=== PATIENT | female | born 1950 | race Caucasian/White ===

== ENCOUNTER 2019-03-16 17:45 | Inpatient (IN) | payer MEDICARE, MEDICAID ==
[~2019-03-16] VITALS: Ht 167.6 cm; Wt 65.9 kg
[2019-03-16] MEDS ORDERED: OXYC5TAB3 PO (17:59)
[2019-03-16] MEDS ORDERED: OXYC10TA47 PO ×2 (17:59→22:46)
[2019-03-16] MEDS ORDERED: ZOLP5TAB PO (17:59)
[2019-03-16] MEDS ORDERED: DETROL (17:59)
[2019-03-16] MEDS ORDERED: SULF1TAB23 PO (17:59)
--- NOTE | 2019-03-16 18:23 | NUR ---
BIB EMS FROM [facility] FOR LEFT LEG POPLITEAL DVT AND GI BLEED. PT VS STABLE AT THIS TIME. PT DENIES CHEST PAIN, SOB, NO PAIN LEFT LEG, JUST EDEMA. PT ALSO DIAGNOSED W UPPER GI BLEED FROM [facility]. NO NAUSEA OR VOMITING AT THIS TIME. MD AT BEDSIDE. IV ESTABLISHED PER EMS. HX OF MRSA
[2019-03-16 19:14] LABS: INTERNATIONAL NORMALIZED RATIO 1.02 (0.93-1.1); PROTHROMBIN TIME 10.7 Seconds (9.6-11.5)
[2019-03-16 19:15] LABS: ALANINE AMINOTRANSFERASE 17 U/L (12-78); ALBUMIN 3.5 g/dL (3.4-5.0); ANION GAP 4 mmol/L (5-15); CALCIUM 8.5 mg/dL (8.5-10.1); CHLORIDE 110 mmol/L (98-107); CREATININE 0.88 mg/dL (0.55-1.02)
[2019-03-16 19:20] LABS: ALKALINE PHOSPHATASE 58 U/L (45-117); BILIRUBIN,TOTAL 0.4 mg/dL (0.2-1.0); TOTAL PROTEIN 6.2 g/dL (6.4-8.2)
--- NOTE | 2019-03-16 19:30 | NUR ---
PT RESTING WATCHING TV. VS STABLE. GIVEN BLANKET. NO NEEDS AT THIS TIME
[2019-03-16 19:31] LABS: MEAN CORPUSCULAR HEMOGLOBIN 22.1 pg (27.0-34.8); MEAN CORPUSCULAR HGB CONC 30.1 g/dL (32.4-35.8); MEAN CORPUSCULAR VOLUME 73.3 fL (80-100); MEAN PLATELET VOLUME 8.2 fL (7.4-10.4); PLATELET COUNT 230 x10^3/uL (130-400); RED BLOOD COUNT 3.36 x10^6/uL (3.82-5.3); RED CELL DISTRIBUTION WIDTH 22.3 % (9.6-15.2)
[2019-03-16 19:32] LABS: MD YES
[2019-03-16 20:12] LABS: EOS#(MANUAL) 0.05 x10^3/uL (0.0-0.4); EOS% (MANUAL) 1 % (1-7); LYMPHS% (MANUAL) 27 % (22-44); MONOS#(MANUAL) 0.26 x10^3/uL (0.3-2.7); MONOS% (MANUAL) 5 % (2-9); SEG#(MANUAL) 3.48 x10^3/uL (1.8-6.8); SEGS% (MANUAL) 67 % (42-75)
[2019-03-16 20:14] LABS: <PLATELET ESTIMATE> ADEQUATE; <PLT MORPHOLOGY> NORMAL PLT MORPH; HYPOCHROMIA 2+; MICROCYTOSIS 2+
--- NOTE | 2019-03-16 20:24 | NUR ---
ASSISTED PT TO BATHROOM W WHEELCHAIR. PT TRANSFERS SELF TO BED FROM CHAIR W OUT ASSISTANCE. PT GIVEN WATER. AIR DEODORIZER SERVICER APPLIED. NO NEEDS AT THIS TIME
--- NOTE | 2019-03-16 21:02 | NUR ---
REPORT TO [facility]
[2019-03-16] MEDS ORDERED: OXYcodone IR 5MG TABLET PO SCH (22:00)
[2019-03-16] MEDS ORDERED: OxyconTIN ER 10 MG TAB.ER PO SCH (22:00)
[2019-03-16] MEDS: [UNRECOGNIZED DRUG - REMARK] MC SCH (22:30)
[2019-03-16] MEDS ORDERED: ACETAMINOPHEN 325 MG TABLET PO PRN (22:30)
[2019-03-16] MEDS ORDERED: hydrALAzine 20 MG/ML, 1ML IVPush PRN (22:30)
[2019-03-16] MEDS ORDERED: LIDODERM 5% PATCH TD PRN (22:30)
[2019-03-16] MEDS ORDERED: ONDANSETRON 2MG/ML, 2ML IVPush PRN (22:30)
[2019-03-16] MEDS ORDERED: BISACODYL 10 MG SUPP PR PRN (22:30)
[2019-03-16] MEDS ORDERED: ARIP30TA4 PO (22:39)
[2019-03-16 22:41] VITALS: BP 149/63
[2019-03-16] MEDS ORDERED: TOLT2CAP PO (22:41)
[2019-03-16] MEDS ORDERED: BUPR300T49 PO (22:44)
[2019-03-16 22:52] VITALS: BP 93/66
[2019-03-16] MEDS ORDERED: PLEASE ENTER ALLERGIES MC SCH (23:00)
[2019-03-16] MEDS ORDERED: OXYC5TAB2 PO (23:02)
[2019-03-16] MEDS: ZOLPIDEM 5MG TABLET PO SCH (23:11)
[2019-03-16] MEDS: SULFAMETH./TRIMETHOPRIM SS 400MG/80MG TABLET PO SCH (23:11)
[2019-03-16] MEDS ORDERED: OXYcodone IR 5MG TABLET PO PRN (23:30)
[2019-03-16] MEDS: OxyconTIN ER 10 MG TAB.ER PO PRN (23:41)
[2019-03-16] MEDS: OXYcodone IR 5MG TABLET PO PRN (23:41)
[2019-03-17] MEDS: [UNRECOGNIZED DRUG - REMARK] MC SCH (05:06)
[2019-03-17 05:25] VITALS: BP 133/77
[2019-03-17] MEDS: OXYcodone IR 5MG TABLET PO PRN ×3 (05:39→23:20)
[2019-03-17 07:00] VITALS: BP 162/84
[2019-03-17 07:10] LABS: ANION GAP 4 mmol/L (5-15); CALCIUM 8.5 mg/dL (8.5-10.1); CHLORIDE 111 mmol/L (98-107); CREATININE 0.87 mg/dL (0.55-1.02)
[2019-03-17] MEDS: SULFAMETH./TRIMETHOPRIM SS 400MG/80MG TABLET PO SCH ×2 (09:04→21:25)
[2019-03-17] MEDS ORDERED: BACL20TA PO (09:25)
[2019-03-17] MEDS ORDERED: LIDOCAINE 1%, 10ML ONE (11:35)
[2019-03-17] MEDS ORDERED: NALOXONE 1 MG/ML, 2ML ONE (11:36)
[2019-03-17] MEDS ORDERED: FENTANYL PF 100 MCG/2ML ONE (11:36)
[2019-03-17] MEDS ORDERED: VISIPAQUE 270 MG/ML, 50ML BOTTLE ONE (12:00)
[2019-03-17] MEDS: PANTOPRAZOLE 40 MG IV IVPush SCH (13:05)
[2019-03-17 13:07] VITALS: BP 146/80
[2019-03-17] MEDS: OxyconTIN ER 10 MG TAB.ER PO PRN (13:20)
[2019-03-17] MEDS: FERROUS SULFATE 325 MG TABLET PO SCH (16:28)
[2019-03-17 20:33] VITALS: BP 134/74
[2019-03-17] MEDS: OxyconTIN ER 10 MG TAB.ER PO SCH (23:20)
[2019-03-17] MEDS: ZOLPIDEM 5MG TABLET PO SCH (23:20)
[2019-03-18] MEDS: PANTOPRAZOLE 40 MG IV IVPush SCH ×2 (00:47→12:55)
[2019-03-18 01:39] VITALS: BP 129/79
[2019-03-18 05:36] LABS: ANION GAP 7 mmol/L (5-15); CHLORIDE 110 mmol/L (98-107)
[2019-03-18 05:37] LABS: MEAN CORPUSCULAR HEMOGLOBIN 22.2 pg (27.0-34.8); MEAN CORPUSCULAR HGB CONC 30.3 g/dL (32.4-35.8); MEAN CORPUSCULAR VOLUME 73.3 fL (80-100); MEAN PLATELET VOLUME 7.9 fL (7.4-10.4); PLATELET COUNT 211 x10^3/uL (130-400); RED BLOOD COUNT 3.58 x10^6/uL (3.82-5.3); RED CELL DISTRIBUTION WIDTH 22.4 % (9.6-15.2)
[2019-03-18 06:45] LABS: BASOPHILS % (AUTO) 0 % (0-1); EOSINOPHILS # (AUTO) 0.11 x10^3/uL (0-0.4); EOSINOPHILS % (AUTO) 2 % (1-7); LYMPHOCYTES # (AUTO) 1.49 x10^3/uL (1-3.4); LYMPHOCYTES % (AUTO) 25 % (22-44); MD SCAN; MONOCYTES # (AUTO) 0.47 x10^3/uL (0.2-0.8); MONOCYTES % (AUTO) 8 % (2-9); NEUTROPHILS # (AUTO) 3.97 x10^3/uL (1.8-6.8); NEUTROPHILS % (AUTO) 66 % (42-75)
[2019-03-18 08:00] VITALS: BP 127/90
[2019-03-18] MEDS: POLYETHYLENE GLYCOL 17 GM PACKET NG SCH (08:53)
[2019-03-18] MEDS: OxyconTIN ER 10 MG TAB.ER PO SCH ×2 (08:53→21:23)
[2019-03-18] MEDS: TOLTERODINE LA 2MG CAP.ER.24H PO SCH (08:53)
[2019-03-18] MEDS: SULFAMETH./TRIMETHOPRIM SS 400MG/80MG TABLET PO SCH ×2 (08:54→21:23)
[2019-03-18] MEDS: ARIPIPRAZOLE 15 MG TABLET PO SCH (08:54)
[2019-03-18] MEDS: OXYcodone IR 5MG TABLET PO PRN ×3 (08:54→17:34)
[2019-03-18] MEDS: FERROUS SULFATE 325 MG TABLET PO SCH ×2 (08:54→17:34)
[2019-03-18] MEDS: TEMPLATE NON-FORMULARY MED. (Bupropion Hcl** (Wellbutrin Xl**) 300 MG) HOMEMEDPO SCH (09:00)
[2019-03-18] MEDS ORDERED: EPINEPHRINE 1 MG/ML, 1ML SQ ONE (13:00)
[2019-03-18] MEDS ORDERED: IRON DEXTRAN COMPLEX 25 MG in SODIUM CHLORIDE 0.9% 50 ML IV ONE (13:00)
[2019-03-18 13:20] VITALS: BP 137/72
[2019-03-18] MEDS ORDERED: IRON SUCROSE COMPLEX 100MG/5ML ONE (13:24)
[2019-03-18] MEDS: IRON SUCROSE COMPLEX 100MG/5ML IV SCH (13:28)
[2019-03-18] MEDS ORDERED: MOVIPREP POWDER 1 PREP KIT PO ONE (18:00)
[2019-03-18 19:07] VITALS: BP 152/81
[2019-03-18] MEDS: ZOLPIDEM 5MG TABLET PO SCH (21:00)
[2019-03-19] MEDS: PANTOPRAZOLE 40 MG IV IVPush SCH (00:54)
[2019-03-19] MEDS: OXYcodone IR 5MG TABLET PO PRN ×3 (00:55→19:48)
[2019-03-19 01:52] VITALS: BP 132/84
[2019-03-19 05:29] LABS: MEAN CORPUSCULAR HGB CONC 30.3 g/dL (32.4-35.8); MEAN CORPUSCULAR VOLUME 72.4 fL (80-100); MEAN PLATELET VOLUME 8.6 fL (7.4-10.4); PLATELET COUNT 202 x10^3/uL (130-400); RED BLOOD COUNT 3.48 x10^6/uL (3.82-5.3); RED CELL DISTRIBUTION WIDTH 22.2 % (9.6-15.2)
[2019-03-19 05:37] LABS: ANION GAP 8 mmol/L (5-15); CHLORIDE 110 mmol/L (98-107); CREATININE 0.68 mg/dL (0.55-1.02)
[2019-03-19 05:49] LABS: MD YES
[2019-03-19 05:52] LABS: ANISOCYTOSIS 2+; EOS#(MANUAL) 0.05 x10^3/uL (0.0-0.4); EOS% (MANUAL) 1 % (1-7); HYPOCHROMIA 2+; LYMPH#(MANUAL) 1.57 x10^3/uL (1-3.4); LYMPHS% (MANUAL) 29 % (22-44); MICROCYTOSIS 2+; MONOS#(MANUAL) 0.16 x10^3/uL (0.3-2.7); MONOS% (MANUAL) 3 % (2-9); OVALOCYTES 1+; POLYCHROMASIA 1+; SEG#(MANUAL) 3.62 x10^3/uL (1.8-6.8); SEGS% (MANUAL) 67 % (42-75)
[2019-03-19 05:53] LABS: <PLATELET ESTIMATE> ADEQUATE; <PLT MORPHOLOGY> NORMAL PLT MORPH
[2019-03-19] MEDS: FERROUS SULFATE 325 MG TABLET PO SCH (08:00)
[2019-03-19] MEDS: POLYETHYLENE GLYCOL 17 GM PACKET NG SCH (08:05)
[2019-03-19] MEDS: TEMPLATE NON-FORMULARY MED. (Bupropion Hcl** (Wellbutrin Xl**) 300 MG) HOMEMEDPO SCH (08:05)
[2019-03-19] MEDS: OxyconTIN ER 10 MG TAB.ER PO SCH ×2 (08:19→19:48)
[2019-03-19] MEDS: SULFAMETH./TRIMETHOPRIM SS 400MG/80MG TABLET PO SCH ×2 (08:19→19:48)
[2019-03-19] MEDS: TOLTERODINE LA 2MG CAP.ER.24H PO SCH (08:19)
[2019-03-19] MEDS: ARIPIPRAZOLE 15 MG TABLET PO SCH (08:20)
[2019-03-19] MEDS: IRON SUCROSE COMPLEX 100MG/5ML IV SCH (08:20)
[2019-03-19 08:23] VITALS: BP 135/80
[2019-03-19] MEDS ORDERED: ONDANSETRON 2MG/ML, 2ML ONE (13:02)
[2019-03-19] MEDS ORDERED: SUCCINYLCHOLINE 20 MG/ML, 10ML ONE (13:02)
[2019-03-19] MEDS ORDERED: PROPOFOL 10 MG/ML, 20ML ONE (13:02)
[2019-03-19] MEDS ORDERED: MIDAZOLAM 1 MG/ML, 2ML ONE (13:03)
[2019-03-19] MEDS ORDERED: ONDANSETRON 2MG/ML, 2ML IVPush PRN (13:30)
[2019-03-19] MEDS ORDERED: PROMETHAZINE 25 MG/ML, 1ML IV PRN (13:30)
[2019-03-19] MEDS ORDERED: FENTANYL PF 100 MCG/2ML IV PRN (13:30)
[2019-03-19] MEDS ORDERED: LABETALOL 5MG/ML, 20ML IV PRN (13:30)
[2019-03-19] MEDS ORDERED: ALBUTEROL SULFATE 2.5 MG/3 ML NPPB PRN (13:30)
[2019-03-19] MEDS ORDERED: METOCLOPRAMIDE 5 MG/ML, 2ML IV PRN (13:30)
[2019-03-19] MEDS ORDERED: hydrALAzine 20 MG/ML, 1ML IV PRN (13:30)
[2019-03-19] MEDS ORDERED: KETOROLAC 30 MG/1 ML IV PRN (13:30)
[2019-03-19] MEDS ORDERED: OXYcodone 5 MG/5 ML ORAL.SOL UDC PO PRN (13:30)
[2019-03-19] MEDS ORDERED: HYDROmorphone 1 MG/ML, 1ML INJ IV PRN (13:30)
[2019-03-19] MEDS ORDERED: MEPERIDINE/PF 25MG/0.5ML IVPush PRN (13:30)
[2019-03-19 15:22] VITALS: BP 110/73
[2019-03-19] MEDS: OMEPRAZOLE 20 MG CAPSULE.DR PO SCH (16:34)
[2019-03-19 19:05] VITALS: BP 122/75
[2019-03-20] MEDS: ZOLPIDEM 5MG TABLET PO SCH (00:11)
[2019-03-20 01:12] VITALS: BP 138/73
[2019-03-20] MEDS: OXYcodone IR 5MG TABLET PO PRN (03:01)
[2019-03-20 05:40] LABS: MEAN CORPUSCULAR HEMOGLOBIN 22.4 pg (27.0-34.8); MEAN CORPUSCULAR HGB CONC 30.3 g/dL (32.4-35.8); MEAN PLATELET VOLUME 8.2 fL (7.4-10.4); PLATELET COUNT 191 x10^3/uL (130-400); RED BLOOD COUNT 3.29 x10^6/uL (3.82-5.3); RED CELL DISTRIBUTION WIDTH 22.1 % (9.6-15.2)
[2019-03-20 05:44] LABS: ANION GAP 8 mmol/L (5-15); CALCIUM 8.2 mg/dL (8.5-10.1); CHLORIDE 111 mmol/L (98-107)
[2019-03-20 05:46] LABS: CREATININE 0.81 mg/dL (0.55-1.02)
[2019-03-20 05:57] LABS: BASOPHILS % (AUTO) 0 % (0-1); EOSINOPHILS # (AUTO) 0.06 x10^3/uL (0-0.4); EOSINOPHILS % (AUTO) 1 % (1-7); LYMPHOCYTES # (AUTO) 1.49 x10^3/uL (1-3.4); LYMPHOCYTES % (AUTO) 21 % (22-44); MD SCAN; MONOCYTES # (AUTO) 0.42 x10^3/uL (0.2-0.8); MONOCYTES % (AUTO) 6 % (2-9); NEUTROPHILS # (AUTO) 5.15 x10^3/uL (1.8-6.8); NEUTROPHILS % (AUTO) 72 % (42-75)
[2019-03-20] MEDS: OMEPRAZOLE 20 MG CAPSULE.DR PO SCH (06:22)
[2019-03-20 08:24] VITALS: BP 118/74
[2019-03-20] MEDS: POLYETHYLENE GLYCOL 17 GM PACKET NG SCH (09:00)
[2019-03-20] MEDS: TEMPLATE NON-FORMULARY MED. (Bupropion Hcl** (Wellbutrin Xl**) 300 MG) HOMEMEDPO SCH (09:00)
[2019-03-20] MEDS: SULFAMETH./TRIMETHOPRIM SS 400MG/80MG TABLET PO SCH (10:05)
[2019-03-20] MEDS: IRON SUCROSE COMPLEX 100MG/5ML IV SCH (10:05)
[2019-03-20] MEDS: TOLTERODINE LA 2MG CAP.ER.24H PO SCH (10:05)
[2019-03-20] MEDS: OxyconTIN ER 10 MG TAB.ER PO SCH (10:06)
[2019-03-20] MEDS: ARIPIPRAZOLE 15 MG TABLET PO SCH (10:06)
[2019-03-20] MEDS ORDERED: APIX5TAB PO (13:05)
[2019-03-20] MEDS ORDERED: OMEP-110 PO (13:05)
[2019-03-20] MEDS ORDERED: FERR324T5 PO (13:25)
[2019-03-20 13:51] VITALS: BP 144/84
== END 2019-03-20 15:59 | disposition home or self-care (01) | DRG 252 ==
LOC: ED 18:45 → EDIP 19:59 → 4EST 22:28
PROVIDERS: ADMIT Family Medicine; ATTEND Family Medicine
PROC: 06H03DZ Insertion of Intraluminal Device into Inferior Vena Cava, Percutaneous Approach (ICD-10-PCS; 2019-03-17)
PROC: 0DBN8ZZ Excision of Sigmoid Colon, Via Natural or Artificial Opening Endoscopic (ICD-10-PCS; 2019-03-19)
PROC: 0DBL8ZZ Excision of Transverse Colon, Via Natural or Artificial Opening Endoscopic (ICD-10-PCS; 2019-03-19)
PROC: 0DB68ZX Excision of Stomach, Via Natural or Artificial Opening Endoscopic, Diagnostic (ICD-10-PCS; principal; 2019-03-19 11:30)
DX: I82.412 Acute embolism and thrombosis of left femoral vein (principal); K25.4 Chronic or unspecified gastric ulcer with hemorrhage; F11.23 Opioid dependence with withdrawal; F33.9 Major depressive disorder, recurrent, unspecified; D62 Acute posthemorrhagic anemia; T39.395A Adverse effect of other nonsteroidal anti-inflammatory drugs [NSAID], initial encounter; F25.9 Schizoaffective disorder, unspecified; G89.4 Chronic pain syndrome; F12.90 Cannabis use, unspecified, uncomplicated; Z96.659 Presence of unspecified artificial knee joint; K44.9 Diaphragmatic hernia without obstruction or gangrene; J44.9 Chronic obstructive pulmonary disease, unspecified; I82.532 Chronic embolism and thrombosis of left popliteal vein; D50.9 Iron deficiency anemia, unspecified; M19.90 Unspecified osteoarthritis, unspecified site; M25.519 Pain in unspecified shoulder; M54.9 Dorsalgia, unspecified; K63.5 Polyp of colon; M81.0 Age-related osteoporosis without current pathological fracture; Z80.1 Family history of malignant neoplasm of trachea, bronchus and lung; Z82.49 Family history of ischemic heart disease and other diseases of the circulatory system; Z87.891 Personal history of nicotine dependence; Z95.828 Presence of other vascular implants and grafts; Y92.098 Other place in other non-institutional residence as the place of occurrence of the external cause; Z90.89 Acquired absence of other organs; Z98.51 Tubal ligation status
CPT/HCPCS: 36415; 37191; 76937; 80048; 80053; 82728; 83540; 83550; 85014; 85018; 85025; 85610; 87338; 88305; 88342; 93970; C1880; C1894; G0378; J1756; J2250; J2405; J2704; J3010; Q9966; C1769; C9113; J0330; J2310